=== PATIENT | male | born 1995 ===

== ENCOUNTER 2017-01-19 20:16 | Emergency (ER) | payer OTHER ==
[~2017-01-19] VITALS: Ht 177.8 cm; Wt 81.2 kg
[2017-01-19 20:23] VITALS: TEMP 37.3; Ht 177.8 cm; Wt 81.2 kg
[2017-01-19] MEDS ORDERED: ACETAMINOPHEN 500 MG TAB PO STA (21:29)
[2017-01-19] MEDS ORDERED: IBUPROFEN 200 MG TAB PO STA (21:29)
[2017-01-19] MEDS ORDERED: DIAZEPAM 5MG TAB PO ONE (21:30)
--- NOTE | 2017-01-19 21:45 | DIAGNOSTIC IMAGING REPORT ---
CHEST ONE VIEW PORTABLE CLINICAL HISTORY: sob dyspnea COMPARISON STUDY: No previous studies for comparison. FINDINGS: Mild left basilar interstitial prominence. Lungs otherwise appear clear. Diaphragms smooth. IMPRESSION: Mild left basilar interstitial prominence. Otherwise negative study The above report was generated using voice recognition software. It may contain grammatical, syntax or spelling errors. Electronically signed by: Truong Avila M.D. 01/19/2017 9:44 PM Dictated Date/Time: 01/19/2017 9:43 PM
[2017-01-19] MEDS ORDERED: ATV/1 PO (22:48)
[2017-01-19] MEDS ORDERED: FAMO40TA6 PO (22:48)
--- NOTE | 2017-01-19 22:49 | EMERGENCY ROOM VISIT NOTE ---
History Report prepared by Concepcionibedson: Brett Cleveland Under the Supervision of: Dr. Parish Hdz M.D. First contact with patient: 20:32 Chief Complaint: RESPIRATORY PROBLEMS Stated Complaint: TROUBLE BREATHING, CONGESTED CHEST/STOMACH/BACK Nursing Triage Summary: Pt states he is having chest pressure after he eats, denies pain, states he has a hx of anxiety, but he is not anxious about anything, pt a/ox3, lungs CTA, [place] History of Present Illness The patient is a 21 year old white male with a past medical history of anxiety who presents to the ED with a cc of persistent shortness of breath beginning about a week ago. Positive decreased appetite, nausea, abdominal "pressure" and low back pain. Negative chest pain, diarrhea, urinary symptoms, or cough. Symptoms feel "like an anxiety attack without the anxiety". Denies feeling anxious about anything in particular. No recent straining or injury. Is not on anything for chronic anxiety as his episodes of anxiety typically happen 2-3 times per semester roughly. No history of blood clots. Drove about 8 hours in a car within the past two days but otherwise denies any recent prolonged travel. Source of History: patient Onset: About a week ago Quality: other (shortness of breath) Timing: other (persistent) Associated Symptoms: + nausea, + abdominal pain ("pressure"), + back pain ( "pressure"), No cough, No chest pain, No diarrhea, No urinary symptoms Note: Positive: decreased appetite. Review of Systems See HPI for pertinent positives and negatives. A total of ten systems were reviewed and were otherwise negative. Past Medical & Surgical Medical Problems: (1) No Known Active Medical Problems Family History No pertinent family history stated. Social History Smoking Status: Never Smoker Smokeless Tobacco Use: No Alcohol Use: occasionally Drug Use: none Occupation Status: [employer] student Current/Historical Medications Scheduled Famotidine (Pepcid), 40 MG PO QD Scheduled PRN Lorazepam (Ativan), 1 MG PO Q6H PRN for Anxiety/Agitation Allergies Coded Allergies: Penicillins (Verified Allergy, Unknown, Unknown, 01/19/17) Physical Exam Vital Signs Date Time Temp Pulse Resp B/P (MAP) Pulse Ox O2 Delivery O2 Flow Rate FiO2 01/19/17 22:57 70 18 122/58 99 01/19/17 20:44 Room Air 01/19/17 20:23 37.3 73 16 129/82 100 Room Air Physical Exam GENERAL: Awake, alert, well-appearing, NAD HENT: Normocephalic, atraumatic. EYES: Normal conjunctiva. Sclera non-icteric. NECK: Supple. No nuchal rigidity. FROM. RESPIRATORY: CTAB, no rhonchi, wheezing, crackles CARDIAC: RRR, no MRG ABDOMEN: Soft, NTND, BS+ MSK: No chest wall TTP, no LE edema, no calf pain NEURO: GCS 15, CN 2-12 intact, moves all 4s on command SKIN: No rash or jaundice noted. Medical Decision & Procedures ER Provider Diagnostic Interpretation: X-ray: Per my interpretation, radiologist review. CHEST ONE VIEW PORTABLE FINDINGS: Mild left basilar interstitial prominence. Lungs otherwise appear clear. Diaphragms smooth. IMPRESSION: Mild left basilar interstitial prominence. Otherwise negative study The above report was generated using voice recognition software. It may contain grammatical, syntax or spelling errors. Electronically signed by: Truong Avila M.D. Medications Administered Medications (Trade) Dose Ordered Sig/Janene Route Start Time Stop Time Status Last Admin Dose Admin Diazepam (Valium Tab) 5 mg NOW ONCE PO 01/19/17 21:30 01/19/17 21:31 DC 01/19/17 21:39 5 MG Ibuprofen (Advil Tab) 400 mg NOW STAT PO 01/19/17 21:29 01/19/17 21:31 DC 01/19/17 21:40 400 MG Acetaminophen (Tylenol Tab) 1,000 mg NOW STAT PO 01/19/17 21:29 01/19/17 21:31 DC 01/19/17 21:39 1,000 MG ECG Indication: SOB/dyspnea Rate (beats per minute): 61 Rhythm: normal sinus Findings: other (Normal axis. Normal intervals. Early repolarization.) ED Course 2108: The patient was evaluated in room A10. A complete history and physical exam was performed. 2227: I reevaluated the patient. Discussed results and discharge instructions: he verbalized understanding and agreement. The patient is ready for discharge. Medical Decision The patient is a 21 year old white male with a past medical history of anxiety who presents to the ED with a cc of persistent shortness of breath beginning about a week ago. Differential diagnosis: asthma, pneumonia, bronchitis, [place], PE and ACS. Patient was seen and evaluated at the bedside. Patient is admitted and history of anxiety which he says only will afflictions several times during semester. Patient is not taking anything for his pain or discomfort. Patient denies any infectious symptoms. No recent car or plane travel. Patient denies any history of DVT or PE. Patient is PRC negative. Patient has no prior history of cardiac disease. Patient was concerned as he states that his mother has a "leaky heart valve." Patient did not have any lower extremity swelling or asymmetry or calf pain. Patient also did not have any murmur on exam. Patient' s EKG did show early repoll throughout. Patient had no SC depressions or chest pain, so less likely pericarditis. Patient chest x-ray clear. Patient's discomfort mildly improved. Patient was given a prescription for by mouth Ativan was strongly encouraged not to use alcohol, drive, or dissolving that requires attention as it can cause him to be drowsy. I explained several times and the patient understood. Patient was given strict follow-up, discharge, and return precautions. Patient agreed with plan of care patient was safely discharged home. Medication Reconcilliation Current Medication List: was personally reviewed by me Blood Pressure Screening Patient's blood pressure: Normal blood pressure Blood pressure disposition: Did not require urgent referral Impression Primary Impression: SOB (shortness of breath) Scribe Attestation The scribe's documentation has been prepared under my direction and personally reviewed by me in its entirety. I confirm that the note above accurately reflects all work, treatment, procedures, and medical decision making performed by me. Departure Information Dispostion Home / Self-Care Prescriptions Famotidine (PEPCID) 40 Mg Tab 40 MG PO QD for 30 Days, #30 TAB Prov: Parish Hdz M.D. 01/19/17 Lorazepam (ATIVAN) 1 Mg Tab 1 MG PO Q6H Y for Anxiety/Agitation, #6 TAB Prov: Parish Hdz M.D. 01/19/17 Referrals No Doctor, Assigned (PCP) Patient Instructions My [facility] Additional Instructions Please return to the emergency department if you have worsening or recurrent symptoms not amenable to at-home treatment. Please call for a follow-up appointment with her primary care physician. Please take your medications as prescribed. If you have other concerns and/or complaints please feel free to also call your primary care physician's office or return the ED for further evaluation, management, and treatment. You received narcotic or benzodiazepene medication while in the emergency room today. This is an addictive medication that may cause drowziness as well as constipation. Do not drive, operate heavy machinery, or drink alcohol under the influence of this medication. You may take 600 mg Ibuprofen every 6 hours as needed for pain with food for no more than 2 consecutive days. You may take tylenol 1000mg every 6 hours as needed for pain. You may take motrin and tylenol separately or at the same time. You have been examined and treated today on an emergency basis only. This is not a substitute for, or an effort to provide, complete comprehensive medical care. It is impossible to recognize and treat all injuries or illnesses in a single emergency department visit. It is therefore important that you follow up closely with [facility]. Call as soon as possible for an appointment. Thank you for your time and consideration. I look forward to speaking with you again soon. Please don't hesitate to call us if you have any questions.
[2017-01-19 22:57] VITALS: BP 122/58; PULSE 70; O2SAT 99
== END 2017-01-19 22:59 | disposition home or self-care (01) ==
LOC: C.EDB 20:19 → C.EDA 22:59
DX: R06.02 Shortness of breath (principal); F41.9 Anxiety disorder, unspecified